=== PATIENT | female | born 1950 | race Caucasian/White ===

== ENCOUNTER → 2016-03-07 | Outpatient (CLI) | payer OTHER ==
--- NOTE | 2016-03-07 11:24 | CT ---
CT Left Lower Extremity With Attention to the Knee Indication: Pain. Preoperative evaluation for left total knee replacement. Technique: Spiral imaging was obtained through the left knee at 0.625 mm slice thickness along with s piral imaging through the left hip and left ankle at 2.5 mm slice thickness. Data were transmitted fo r subsequent JUICE knee replacement. Dose reduction techniques utilized. Comparison: None. Findings Left Hip: No lymphadenopathy or mass throughout the imaged portion of the pelvis and left hip. Mild l eft hip osteoarthritis is evidenced by joint space narrowing and small marginal osteophytes. No bone lesion or fracture. Left Knee: Severe patellofemoral osteoarthritis and mild tibiofemoral osteoarthritis. The patella is translated laterally 6 mm, and bone articulates with bone with exuberant osteophytes emanating off th e medial and lateral joint lines. A small suprapatellar effusion is present. Mild tibiofemoral osteoa rthritis is evidenced by symmetric joint space narrowing of the medial and lateral compartments with associated osteophytes and subchondral sclerosis. Tiny calcified loose bodies reside anterior to the lateral tibia femoral joint space. Left Ankle: No significant osteoarthritis. Impression: 1. Knee osteoarthritis principally affecting the patellofemoral joint. 2. Small knee effusion and probable small loose bodies. 3. Data were transmitted for JUICE knee replacement surgery.
== END ==
LOC: FIMAGING 10:14
PROVIDERS: ATTEND Orthopaedic Surgery
DX: Z01.818 Encounter for other preprocedural examination (principal); M17.12 Unilateral primary osteoarthritis, left knee; M25.462 Effusion, left knee

== ENCOUNTER 2016-03-13 08:54 | Inpatient (IN) | payer OTHER ==
[~2016-03-13 08:54] MED LIST: ACETAMINOPHEN 325 MG TAB PO ONE; CEFAZOLIN 2 GM/DEXTR 100 ML IV ONE; CHLORHEXIDINE GLUC HIBICLENS 118 ML BTL TP ONE; DEXAMETHASONE 4 MG/ML VIAL IVP ONE; FAMOTIDINE 20 MG TAB PO ONE; ROPI/epiNEPH/KETOROLAC JOINT COCKTAIL IU ONE; TRANEXAMIC ACID 3,000 MG in NS 50 ML IRR ONE
[2016-03-13] MEDS ORDERED: VANCOMYCIN 1 GM VIAL IV ONE (09:17)
[2016-03-13] MEDS ORDERED: TRANEXAMIC ACID 3,000 MG/50 ML BAG IRR ONE (09:17)
[2016-03-13] MEDS ORDERED: SKIN ADHESIVE (DERMABOND) 1 EACH TP ONE (09:17)
[2016-03-13] MEDS ORDERED: ACETAMINOPHEN 325 MG TAB ONE (09:19)
[2016-03-13] MEDS ORDERED: LIDOCAINE 1% 5 ML SDV ONE (09:19)
[2016-03-13] MEDS ORDERED: FAMOTIDINE 20 MG TAB ONE (09:19)
[2016-03-13] MEDS ORDERED: DEXAMETHASONE 4 MG/ML VIAL ONE (09:19)
[2016-03-13] MEDS ORDERED: CEFAZOLIN 2 GM/DEXTROSE/100 ML BAG IV ONE (09:19)
[2016-03-13] MEDS ORDERED: LR 1,000 ML IV ONE (09:50)
[2016-03-13] MEDS ORDERED: BUPIVACAINE/DEXTROSE 7.5MG SPINAL AMP SP ONE (11:06)
[2016-03-13] MEDS ORDERED: LIDOCAINE 2% 100 MG/5 ML SYR IVP ONE (11:06)
[2016-03-13] MEDS ORDERED: PROPOFOL/EMULSION 500 MG/50 ML BOTTLE IV ONE ×2 (11:06→11:50)
[2016-03-13] MEDS ORDERED: ONDANSETRON 4 MG/2 ML VIAL ONE (11:06)
[2016-03-13] MEDS ORDERED: MIDAZOLAM 2 MG/2 ML VIAL ONE (11:07)
[2016-03-13] MEDS ORDERED: BISACODYL 10 MG SUPP PR PRN (12:48)
[2016-03-13] MEDS ORDERED: oxyCODONE IR 5 MG TAB PO PRN (12:48)
[2016-03-13] MEDS ORDERED: LACTULOSE 20 GM/30 ML UDCUP PO PRN (12:48)
[2016-03-13] MEDS ORDERED: PHARMACY PAIN CONSULT 1 EA MISC PRN (12:48)
[2016-03-13] MEDS ORDERED: PROMETHAZINE HCL 25 MG SUPPR PR PRN (12:48)
[2016-03-13] MEDS ORDERED: ONDANSETRON 4 MG/2 ML VIAL IVP PRN (12:48)
[2016-03-13] MEDS ORDERED: PROMETHAZINE HCL 25 MG/ML VIAL IVP PRN (12:48)
[2016-03-13] MEDS ORDERED: diphenhydrAMINE 25 MG CAP PO PRN (12:48)
[2016-03-13] MEDS ORDERED: TEMAZEPAM 15 MG CAP PO PRN (12:48)
[2016-03-13] MEDS ORDERED: POLYETHYLENE GLYCOL 3350 17 GM PKT PO PRN (12:48)
[2016-03-13] MEDS ORDERED: ONDANSETRON DISINTEGRATING 4 MG TAB PO PRN (12:48)
[2016-03-13] MEDS ORDERED: DIPHENOXYLATE/ATROPINE LOMOTIL 1 TAB PO PRN (12:48)
[2016-03-13] MEDS ORDERED: MAGNESIUM HYDROXIDE 30 ML UDCUP PO PRN (12:48)
[2016-03-13] MEDS ORDERED: CYCLOBENZAPRINE 10 MG TAB PO PRN (12:48)
--- NOTE | 2016-03-13 12:48 | POSTOPPROG ---
Post Op Note Date of Operation: 03/13/16 Surgeon: Roman Mcnulty Electrical Equipment Assembler: julio mcnulty Anesthesiologist: dr. prater Anesthesia: Spinal, Other (Specify) (adductor canal block) Pre-op Diagnosis: left knee OA Post-op Diagnosis: same Indication: left knee pain due to OA that failed conservative measuers Procedure: L TKA with robot assistance Findings: severe knee OA Inf/Abcess present in the surg proc area at time of surgery?: No EBL: 50-100
[2016-03-13] MEDS ORDERED: LR 1,000 ML IV SCH (13:00)
--- NOTE | 2016-03-13 13:31 | DX ---
Portable left knee 2 views March 13, 2016, 1314 hours HISTORY: Assess hardware. FINDINGS: Components of total knee arthroplasty appear well seated. No fracture. Air is dispersed wit hin the joint. IMPRESSION: Total left knee arthroplasty.
[2016-03-13 17:08] VITALS: RESP 14
[2016-03-13 18:00] VITALS: BP 124/64; PULSE 91; TEMP 97.9; O2SAT 97
[2016-03-13] MEDS ORDERED: ACETAMINOPHEN 325 MG TAB PO SCH (18:00)
[2016-03-13] MEDS ORDERED: ceFAZolin 2 GM/DEXTROSE 100 ML IV SCH (19:30)
[2016-03-13] MEDS ORDERED: SENNOSIDES/DOCUSATE SODIUM TAB PO SCH (21:00)
[2016-03-13] MEDS ORDERED: ASPIRIN 325 MG TAB PO SCH (21:00)
[2016-03-13] MEDS ORDERED: FAMOTIDINE 20 MG TAB PO SCH (21:00)
--- NOTE | 2016-03-13 21:54 | GOP ---
[f rep st] OPERATIVE REPORT DATE OF OPERATION: 03/13/2016 SURGEON: Diego Fong MD DERMATOLOGIST: aCndy Fong PA-C. ANESTHESIA: Spinal. PREOPERATIVE DIAGNOSIS: Left knee osteoarthritis. POSTOPERATIVE DIAGNOSIS: Left knee osteoarthritis. PROCEDURE PERFORMED: Left total knee replacement with computer navigation with robotic assist. FINDINGS: ESTIMATED BLOOD LOSS: 30 cc. INDICATIONS: This is a 65-year-old female with severe and progressive pain and deformity of the left knee unresponsive to conservative care. Risks and benefits of the surgical intervention were explained in detail. DESCRIPTION OF PROCEDURE: The patient was brought to the operative room and placed on the table in the supine position. Spinal anesthesia was induced without difficulty. A pneumatic tourniquet was applied about the left proximal thigh, and the leg was prepped and draped in a sterile fashion. The leg arroyo was applied. After exsanguination by elevation the tourniquet was inflated to 275 mm of mercury. Incision was made anterior medial from the tibial tuberosity to a point 2 cm proximal to the superior pole of the patella. Medial parapatellar arthrotomy was carried out from the superior pole of the patella and posteriorly in line with the fibers of the Type II VMO. The medial collateral ligament was elevated and the infrapatellar fat pad was resected. The patella was everted and the articular surface was excised. A 32 mm patellar button was placed. Attention was turned first to the distal aspect of the left femur. At 3 cm proximal to the medial rise of the femur, 2 percutaneous half pins were placed for fixation of the femoral array. In a similar fashion, 2 pins were placed anteromedial on the tibia for fixation of the tibial array. External land marking and registration of the hip center was performed without difficulty. Internal femoral and tibial registration was carried out without difficulty and the femoral and tibial checkpoints were placed and verified for accuracy. Attention was turned to the femur. The foot print for the size 3 femoral component was cut with the saw using the [employer] robotic system and verified for accuracy against the CT based plan. In a similar fashion, saw was used to cut the footprint for the size 3 tibial component using the [employer] system and verified for accuracy against the CT based plan. The tibial articular surface was excised without difficulty, followed by the intercondylar box cut. The knee was extended and the remnants of the medial and lateral meniscus were excised. The posterior capsule was injected with ropivacaine, epinephrine and Toradol. A size 3 MIS mini-keel tibial tray was positioned. Trial reduction was then carried out. There was excellent range of motion, alignment, and stability using the 9 mm polyethylene. All trials were then removed. The joint was thoroughly irrigated and carefully dried. Two packages of cement and 2 grams of vancomycin were mixed in the vacuum mixer and placed on the fixation surfaces of all surfaces of the components. The components were implanted and all excess cement was thoroughly removed. The permanent 9 mm polyethylene was placed without difficulty. The tourniquet was deflated and all bleeders were coagulated. The wound was thoroughly irrigated and closed using interrupted sutures of 2-0 Vicryl for the joint capsule. The subcu was closed with 3-0 Vicryl and the skin with 4-0 Monocryl. Dermabond and Steri-Strips were applied followed by a compressive dressing. The patient was then moved from the operating room to the recovery room in good condition, having tolerated the procedure well. PATHOLOGY: Severe lateral and patellofemoral osteoarthritis. /[id number]/MODL MTDD
[2016-03-14] MEDS ORDERED: ESCITALOPRAM OXALATE 10 MG TAB PO SCH (09:00)
--- NOTE | 2016-03-14 14:21 | GDS ---
[f rep st] DISCHARGE SUMMARY ADMISSION DIAGNOSIS: Left knee osteoarthritis. DISCHARGE DIAGNOSIS: Left knee osteoarthritis. PROCEDURE: Left total knee arthroplasty, robot-assisted. VTE PROPHYLAXIS: Aspirin recommended for 3 weeks daily. BRIEF DESCRIPTION OF HOSPITAL STAY: Patient was admitted for an elective joint arthroplasty. The pa tient tolerated the procedure well and has passed physical therapy. The patient was given appropriat e antibiotic prophylaxis and venous thromboembolism prophylaxis. The patient's pain was well control led on oral pain medication, patient was holding down food, and had urinated. Decision was made to d ischarge the patient. The patient was given postoperative prescriptions preoperatively. PLAN: To follow up with Dr. Fong at [facility] in 2 to 3 weeks. /[id number]/MODL
== END 2016-03-13 20:28 | disposition home or self-care (01) | DRG 470 ==
LOC: F3E 08:54 → F3N 11:51
PROVIDERS: ADMIT Orthopaedic Surgery; ATTEND Orthopaedic Surgery
PROC: 8E0YXCZ Robotic Assisted Procedure of Lower Extremity (ICD-10-PCS; principal; 2016-03-13 11:15)
PROC: 0SRD0J9 Replacement of Left Knee Joint with Synthetic Substitute, Cemented, Open Approach (ICD-10-PCS; principal; 2016-03-13 11:15)
DX: M17.12 Unilateral primary osteoarthritis, left knee (principal)
CPT/HCPCS: 97161-GP; C1713; J0171; J0690; J1100; J1885; J2001; J2250; J2405; J2704; J2795; J3370

== ENCOUNTER → 2017-11-06 | Outpatient (CLI) | payer OTHER | LOC: CIMAGING 09:51 | PROVIDERS: ATTEND Family Medicine | DX: Z12.31 Encounter for screening mammogram for malignant neoplasm of breast (principal); Z85.42 Personal history of malignant neoplasm of other parts of uterus; Z79.890 Hormone replacement therapy ==